=== PATIENT | male | born 1975 | race Caucasian/White ===

== ENCOUNTER 2019-04-07 12:23 | Outpatient (CLI) | payer BC ==
--- NOTE | 2019-04-07 15:45 | Diagnostic Imaging Report ---
Indication: Left flank pain Technique: Grayscale and duplex images of the kidneys, retroperitoneum, and bladder were obtained. Comparison: none Findings: Right kidney measures 12.4 cm in length. Left kidney measures 11.8 cm in length. Both kidneys demonstrate normal echogenicity. There is very mild left hydronephrosis. Calcifications are seen in the renal sinuses bilaterally.. Normal inferior vena cava. Bladder is normal. There is questionably a calcification in the left distal ureter which measures 4 mm diameter Bilateral ureteral jets are demonstrated. Postvoid bladder volume is 15 mL. Impression: Possible 4 mm diameter left distal ureteral calculus, resulting in mild hydronephrosis if real. This is only partially obstructive, as a left ureteral jet is demonstrated. Bilateral intrarenal calculi 15 mL postvoid bladder volume. Findings discussed by phone with Dr. Vogel
== END 2019-04-07 14:23 | disposition home or self-care (01) ==
LOC: ULS 12:23
DX: N20.0 Calculus of kidney (principal)
CPT/HCPCS: 76770